=== PATIENT | female | born 1970 | race Caucasian/White ===

== ENCOUNTER 2023-12-10 10:24 | Inpatient (IN) | payer OTHER ==
[2023-12-10 11:00] LABS: #Basophils 0.04 10x3/uL (0.0-0.2); #Eosinphils 0.16 10x3/uL (0.0-0.5); #Monocytes 0.67 10x3/uL (0.0-1.1); #Neutrophils 4.06 10x3/uL (1.5-8.4); %Basophils 0.6 % (0.0-2.0); %Eosinophils 2.3 % (0.0-6.0); %Lymphocytes 28.3 % (18.0-47.0); %Monocytes 9.7 % (0.0-10.0); %Neutrophils 58.7 % (40.0-75.0); Hematocrit 37.3 % (34.9-44.5); Hemoglobin 11.6 g/dL (12.0-15.5); Mean Corpuscular HGB CONC 31.1 g/dL (32.0-36.0); Mean Corpuscular Hemoglobin 21.1 pg (27.0-33.0); Mean Corpuscular Volume 67.7 fL (81.6-98.3); Mean Platelet Volume 9.2 fL (7.4-10.4); Platelet Count 382 10x3/uL (150-450); RBC Distribution Width 15.1 % (11.5-14.5); Red Blood Cell (RBC) Count 5.51 10x6/uL (3.90-5.03); White Blood Cell (WBC) Count 6.9 10x3/uL (3.5-10.5)
[2023-12-10 11:05] LABS: Prothrombin Time 10.7 sec (9.5-12.1)
[2023-12-10 11:15] LABS: ALT (SGPT) 20 U/L (8-55); AST (SGOT) 17 U/L (5-34); Albumin 3.6 g/dL (3.5-5.0); Alkaline Phosphatase 111 U/L (40-110); Anion Gap 13 mmol/L (10-20); BUN (Urea Nitrogen) 13 mg/dL (9.8-20.1); Bilirubin, Total 0.4 mg/dL (0.2-1.2); Calc. Creatinine Clearance 0 mL/min (70-130); Calcium 9.4 mg/dL (7.8-10.44); Carbon Dioxide 26 mmol/L (22-29); Chloride 107 mmol/L (98-107); Estimated GFR 77; Glucose 102 mg/dL (70-105); Protein, Total 6.6 g/dL (6.0-8.3); Sodium 142 mmol/L (136-145)
[2023-12-10 11:17] LABS: Troponin I Less than 0.010 ng/mL (< 0.028)
[2023-12-10] MEDS ORDERED: Aspirin Chewable 81 MG TAB ONE (12:33)
[2023-12-10] MEDS ORDERED: Iopamidol 370 76% 100 ML VIAL ONE (12:59)
[2023-12-10 13:20] LABS: Anisocytosis SLIGHT = 6-15 cells (100X) (0-5/hpf); Microcytosis SLIGHT = 6-15 cells (100X) (0-5/hpf); Platelet Adequacy Comment Appears Adequate
[2023-12-10] MEDS ORDERED: Ondansetron ODT 4 MG TAB PO PRN (14:49)
[2023-12-10] MEDS ORDERED: Calcium Carbonate 500 MG ChewTAB PO PRN (14:49)
[2023-12-10] MEDS ORDERED: Ondansetron PF 4 MG/2 ML Vial IVP PRN (14:49)
[2023-12-10] MEDS ORDERED: Acetaminophen 650 MG Suppository PR PRN (14:49)
[2023-12-10] MEDS ORDERED: Senokot S 8.6-50 MG TAB PO PRN (14:49)
[2023-12-10] MEDS ORDERED: hydrALAZINE 20 MG/ML VIAL SLOW IVP PRN (14:49)
[2023-12-10 15:21] LABS: Iron 92 ug/dL (50-170); Iron Binding Capacity, Total 334 mcg/dL (265-497)
[2023-12-10 15:23] LABS: Amphetamine Not Detected (NotDetected); Barbiturates Screen Not Detected (NotDetected); Benzodiazepine Screen Detected (NotDetected); Cocaine Metabolite Screen Not Detected (NotDetected); Methadone Not Detected (NotDetected); Methamphetamine Not Detected (NotDetected); Opiate Screen Not Detected (NotDetected); Oxycodone Screen Not Detected (NotDetected); Phencyclidine (PCP) Not Detected (NotDetected); THC/Cannabinoid Screen Detected (NotDetected); Tricyclic Screen Not Detected (NotDetected)
[2023-12-10] MEDS: Lactated Ringer's 1,000 ML IV SCH (16:26)
[2023-12-10 18:52] VITALS: BMI 35.2
[2023-12-10] MEDS ORDERED: Lorazepam 1 MG TAB PO PRN (19:10)
[2023-12-10] MEDS: Acetaminophen 325 MG TAB PO SCH (20:26)
[2023-12-10] MEDS ORDERED: LURASIDONE 40 MG PO SCH (21:00)
[2023-12-10] MEDS: busPIRone HCl 15 MG TAB PO SCH (21:20)
[2023-12-10] MEDS: Rosuvastatin 20 MG TAB PO SCH (21:20)
[2023-12-10] MEDS: Famotidine 20 MG TAB PO SCH (21:21)
[2023-12-11 04:44] LABS: Anion Gap 14 mmol/L (10-20); BUN (Urea Nitrogen) 13 mg/dL (9.8-20.1); Calc. Creatinine Clearance 106 mL/min (70-130); Calcium 8.7 mg/dL (7.8-10.44); Carbon Dioxide 23 mmol/L (22-29); Cardiac Risk 4.8 (Less than 4.5); Chloride 108 mmol/L (98-107); Cholesterol 178 mg/dl (< 200 Desired); Estimated GFR 90; Glucose 104 mg/dL (70-105); HDL Cholesterol 37 mg/dL (>60 Neg Risk); LDL Cholesterol, Calculated 121 mg/dL; Magnesium 1.9 mg/dL (1.6-2.6); Sodium 141 mmol/L (136-145); Triglycerides 101 mg/dL (Less than 150)
[2023-12-11 04:46] LABS: #Basophils 0.04 10x3/uL (0.0-0.2); #Eosinphils 0.21 10x3/uL (0.0-0.5); #Monocytes 0.54 10x3/uL (0.0-1.1); #Neutrophils 2.87 10x3/uL (1.5-8.4); %Basophils 0.7 % (0.0-2.0); %Eosinophils 3.7 % (0.0-6.0); %Lymphocytes 35.5 % (18.0-47.0); %Monocytes 9.5 % (0.0-10.0); %Neutrophils 50.4 % (40.0-75.0); Hematocrit 33.9 % (34.9-44.5); Hemoglobin 10.6 g/dL (12.0-15.5); Mean Corpuscular HGB CONC 31.3 g/dL (32.0-36.0); Mean Corpuscular Hemoglobin 21.2 pg (27.0-33.0); Mean Corpuscular Volume 67.9 fL (81.6-98.3); Mean Platelet Volume 9.6 fL (7.4-10.4); Platelet Count 378 10x3/uL (150-450); RBC Distribution Width 15.2 % (11.5-14.5); Red Blood Cell (RBC) Count 4.99 10x6/uL (3.90-5.03); White Blood Cell (WBC) Count 5.7 10x3/uL (3.5-10.5)
[2023-12-11] MEDS ORDERED: Mometasone 200 MCG/Formoterol 5 MCG 120 PUFF INHALER INH SCH (06:30)
[2023-12-11] MEDS: Mometasone 200 MCG/Formoterol 5 MCG 60 PUFF INHALER INH SCH (08:13)
[2023-12-11 09:37] VITALS: BP 109/76; TEMP 98.9
[2023-12-11] MEDS: Aspirin 81 mg Enteric Coated Tablet PO SCH (09:38)
[2023-12-11] MEDS: Multivit, Therapeutic 1 TAB PO SCH (09:38)
[2023-12-11] MEDS: Cyanocobalamin (Vitamin B-12) 1,000 MCG TAB PO SCH (09:38)
[2023-12-11] MEDS: Enoxaparin 40 MG (0.4 mL) SYRINGE SC SCH (09:40)
[2023-12-11 14:11] LABS: Hemoglobin A1c 5.6 % (4.0-6.0)
== END 2023-12-11 13:10 | disposition home or self-care (01) | DRG 93 ==
LOC: CSHERS 10:24 → CSHTELE 15:18
PROVIDERS: ADMIT Internal Medicine; ATTEND Internal Medicine
DX: R47.81 Slurred speech (principal); J45.909 Unspecified asthma, uncomplicated; F41.9 Anxiety disorder, unspecified; F20.9 Schizophrenia, unspecified; T50.995A Adverse effect of other drugs, medicaments and biological substances, initial encounter; F17.210 Nicotine dependence, cigarettes, uncomplicated; F43.12 Post-traumatic stress disorder, chronic; E78.5 Hyperlipidemia, unspecified; G24.01 Drug induced subacute dyskinesia; F12.90 Cannabis use, unspecified, uncomplicated; D50.9 Iron deficiency anemia, unspecified; Z71.6 Tobacco abuse counseling; Z71.51 Drug abuse counseling and surveillance of drug abuser; Z88.0 Allergy status to penicillin; Z79.899 Other long term (current) drug therapy; Z88.2 Allergy status to sulfonamides; Z88.8 Allergy status to other drugs, medicaments and biological substances
CPT/HCPCS: 36415; 36416; 70450; 70496; 70498; 70551; 80048; 80053; 80061; 80306; 82728; 83036; 83540; 83550; 83735; 84443; 84484; 85025; 85046; 85610; 86850; 86900; 86901; 93005; 94760; 94762; J7120; Q9967

== ENCOUNTER 2024-01-13 14:10 | Outpatient (CLI) | payer OTHER | END 2024-01-13 14:11 | disposition home or self-care (01) | LOC: CSHMAMMO 14:10 | PROVIDERS: ATTEND Family Medicine | DX: Z12.31 Encounter for screening mammogram for malignant neoplasm of breast (principal); Z80.3 Family history of malignant neoplasm of breast | CPT/HCPCS: 77067 ==